=== PATIENT | female | born 1955 | race Hispanic/Latino ===

== ENCOUNTER 2024-03-07 06:54 | Day surgery (SDC) | payer MEDICARE ==
[2024-03-07] VITALS (11 sets, daily range): BP systolic 84–126; BP diastolic 40–59; PULSE 50–62; RESP 10–16; TEMP 96.6–98
[~2024-03-07] VITALS: Ht 162.6 cm; Wt 57.2 kg
[2024-03-07] MEDS: 0.9%NACL 1000ML 1,000 ML IV ONE (07:05)
[2024-03-07] MEDS ORDERED: proPOFol 10 MG/ML 20ML VIAL IV ONE ×4 (08:06→09:05)
== END 2024-03-07 10:30 | disposition home or self-care (01) ==
LOC: SUH 06:54 → DAH 06:54 → SUH 10:30
PROVIDERS: ATTEND Internal Medicine
DX: K86.2 Cyst of pancreas (principal); K86.89 Other specified diseases of pancreas; R93.3 Abnormal findings on diagnostic imaging of other parts of digestive tract; D12.6 Benign neoplasm of colon, unspecified; K57.30 Diverticulosis of large intestine without perforation or abscess without bleeding; K64.0 First degree hemorrhoids; M19.90 Unspecified osteoarthritis, unspecified site; E78.5 Hyperlipidemia, unspecified; Z79.899 Other long term (current) drug therapy
CPT/HCPCS: 43237; J7030; J2704 ×4; A4620; A4215; J3490

== ENCOUNTER 2024-03-08 09:49 | Day surgery (SDC) | payer MEDICARE ==
[2024-03-08] VITALS (12 sets, daily range): BP systolic 109–127; BP diastolic 45–56; PULSE 52–57; RESP 13–19; TEMP 97.3–97.7
[~2024-03-08] VITALS: Ht 162.6 cm; Wt 57.2 kg
[2024-03-08] MEDS: 0.9%NACL 1000ML 1,000 ML IV ONE (11:54)
[2024-03-08] MEDS ORDERED: proPOFol 10 MG/ML 20ML VIAL IV ONE (13:29)
[2024-03-08] MEDS ORDERED: rocuRONium bROMide 10MG/1ML 5ML VL ONE (13:30)
[2024-03-08] MEDS ORDERED: LIDOCAINE PF 100MG/5ML (2%) SYRINGE 5ML ONE (13:30)
[2024-03-08] MEDS ORDERED: ondanSETRON 4MG INJ ONE (14:06)
[2024-03-08] MEDS ORDERED: dexaMETHasone SOD PHOSPHATE 10MG/ML 1ML VIAL ONE (14:07)
[2024-03-08] MEDS ORDERED: NEOSTIGMINE METHYLSULFATE 1MG/ML IV ONE (14:07)
[2024-03-08] MEDS ORDERED: GLYCOPYRROLATE 0.2 MG/ML 5 ML VIAL ONE (14:08)
[2024-03-08] MEDS ORDERED: SUGAMMADEX SODIUM 200 MG/2 ML VIAL IV ONE (14:12)
[2024-03-08] MEDS ORDERED: FENTanyl CITRate PF 50 MCG/1 ML 2ML VIAL ONE (14:21)
[2024-03-08] MEDS ORDERED: MIDAZOLAM HCL 1 MG/ML 2ML VIAL ONE (14:22)
== END 2024-03-08 16:27 | disposition home or self-care (01) ==
LOC: DAH 09:49 → ENDO 09:49
PROVIDERS: ATTEND Internal Medicine
DX: K86.2 Cyst of pancreas (principal); K86.89 Other specified diseases of pancreas; R93.3 Abnormal findings on diagnostic imaging of other parts of digestive tract; E78.5 Hyperlipidemia, unspecified; M19.90 Unspecified osteoarthritis, unspecified site; Z90.710 Acquired absence of both cervix and uterus; R10.10 Upper abdominal pain, unspecified; D12.6 Benign neoplasm of colon, unspecified; K57.30 Diverticulosis of large intestine without perforation or abscess without bleeding; K64.0 First degree hemorrhoids; Z88.6 Allergy status to analgesic agent; Z79.899 Other long term (current) drug therapy
CPT/HCPCS: 43238; J3010; J1100; J7030 ×2; J3490 ×2; J2003; J2250; J2704; J2405; J2710; A4620; A4215 ×3; A4223; A7002; A4222; A4221; A4663; A4606

== ENCOUNTER 2024-10-25 13:13 | Emergency (ER) | payer MEDICARE, OTHER ==
[~2024-10-25] VITALS: Ht 162.6 cm; Wt 49.9 kg
--- NOTE | 2024-10-25 13:43 | ERN ---
General Chief Complaint: Weakness Stated Complaint: GBW Time Seen by MD: 13:16 Source: patient History of Present Illness Initial Comments Patient is a 68-year-old female coming in due to diarrhea and generalized body week it is episode. Per patient she has a history of CA and has been on chemotherapy. She states he was eating at a restaurant started feeling generalized body weakness went to the restroom has a diarrheal episode and states shortly after that she felt better but is here for further evaluation. Allergies: Coded Allergies: No Known Drug Allergies (Unverified Allergy, Unknown, 03/06/24) Home Meds No Active Prescriptions or Reported Meds Past Medical History Past Medical History: Cancer Medical History Other: PANCREATIC CA Past Surgical History: Appendectomy, Hysterectomy ROS Dictation CONSTITUTIONAL: No chills, no fever, no weakness, no diaphoresis, no malaise. HEAD/FACE: No signs of trauma. EENT: No eye pain, no blurred vision, no tearing, no double vision, no ear pain, no ear discharge, no nose pain, no nasal congestion, no throat pain, no throat swelling, no mouth pain. RESPIRATORY: No cough, no orthopnea, no SOB, no stridor, no wheezing. CARDIOVASCULAR: No chest pain, no edema, no palpitations, no syncope. GASTROINTESTINAL/ABDOMINAL: No abdominal pain, no constipation, no diarrhea, no nausea, no vomiting. GENITOURINARY: No abnormal discharge, no dysuria, no frequent urination, no hematuria. No complaints of pain in the genitals. MUSCULOSKELETAL: No back pain, no gout, no joint pain, no joint swelling, no muscle pain, no muscle stiffness, no neck pain. INTEGUMENTARY: No change in color, no change in hair/nails, no dryness, no lesion, no lumps, no rash. NEUROLOGICAL/PSYCH: No anxiety, not depressed, no emotional problem, no headache, no numbness, no pre-existing deficit, no history of seizures, no tremors, no weakness. HEMATOLOGIC/LYMPHATIC: Not anemic, no history of blood clots, no apparent bleeding, no bruising, glands not swollen. All Systems Negative, Except as Noted. Physical Exam Physical Exam Dictation VITAL SIGNS: Reviewed. GENERAL APPEARANCE: Alert, oriented x3, no acute distress, obese. HEAD AND FACE: Non-traumatic. EYES: PERRL, pink conjunctivas, eyelid no trauma, anterior chamber clear. EARS: Pinnas intact and no signs of trauma or erythema. Ear canals clear and no discharge. TMs no erythema. NOSE: No discharge, no bleeding. OROPHARYNX: Mouth normal, teeth no caries, tongue pink. Pharynx clear, no erythema. Tonsils no exudates, no abscesses noted. Mucous membrane moist. NECK: Supple, non-tender, no thyromegaly, no masses, no JVD, no bruits. BREAST: Deferred. CHEST: No tenderness, no crepitus, no paradoxical movement, no retractions. LUNGS: Clear, well-ventilated, symmetric, no rales, no wheezing, no rhonchi, no stridor, good breath sounds bilaterally. HEART: Regular rate, regular rhythm, no murmur, no gallops. VASCULAR: No peripheral edema. ABDOMEN: Soft, positive bowel sounds, nondistended, no guarding, nontender, no rebound, no masses no hepatomegaly, no splenomegaly, no Holman's sign, no hernias. RECTAL: Deferred. GENITAL: Deferred. NEUROLOGICAL: Normal speech, gross motor function intact, gross sensory function intact. MUSCULOSKELETAL: Neck nontender, full range of motion, back nontender, full range of motion. EXTREMITIES: Nontender, full range of motion. SKIN: Color pink, dry, no turgor, no rash, no lacerations, no abrasions, no contusions. LYMPHATICS: Deferred. Results Laboratory and Microbiology Lab and Micro Result Laboratory Tests Test 10/25/24 13:37 10/25/24 13:45 Urine Color YELLOW (YELLOW) Urine Appearance CLEAR (CLEAR) Urine pH 5.0 (5.0-8.0) Urine Specific [place] 1.016 (1.001-1.031) Urine Protein NEGATIVE mg/dL (NEGATIVE) Urine Glucose (UA) NEGATIVE mg/dL (NEGATIVE) Urine Ketones NEGATIVE mg/dL (NEGATIVE) Urine Occult Blood NEGATIVE (NEGATIVE) Urine Nitrate NEGATIVE (NEGATIVE) Urine Bilirubin NEGATIVE mg/dL (NEGATIVE) Urine Urobilinogen 0.2 mg/dL (0.2-1.0) Urine Leukocyte Esterase NEGATIVE [place]/uL White Blood Count 8.9 K/uL (4.8-10.8) Red Blood Count 2.90 MIL/uL (4.00-5.50) L Hemoglobin 9.0 g/dL (12.0-16.0) L Hematocrit 27.9 % (36-48) L Mean Corpuscular Volume 96.2 fL (79-99) Mean Corpuscular Hemoglobin 31.0 pg (27.0-33.0) Mean Corpuscular Hemoglobin Concent 32.3 g/dL (32.0-36.0) Red Cell Distribution Width 17.7 % (11.0-15.5) H Platelet Count 155 K/uL (130-400) Mean Platelet Volume 10.7 fL (7.5-10.5) H Immature Granulocyte % (Auto) 0.6 % (0-1) Neutrophils (%) (Auto) 85.0 % (40.0-77.0) H Lymphocytes (%) (Auto) 12.4 % (21.0-51.0) L Monocytes (%) (Auto) 1.0 % (3.0-13.0) L Eosinophils (%) (Auto) 0.9 % (0.0-8.0) Basophils (%) (Auto) 0.1 % (0.0-5.0) Neutrophils # (Auto) 7.6 K/uL (1.8-7.7) Lymphocytes # (Auto) 1.1 K/uL (1.0-4.8) Monocytes # (Auto) 0.1 K/uL (0.1-1.0) Eosinophils # (Auto) 0.08 K/uL (0.00-0.70) Basophils # (Auto) 0.01 K/uL (0.00-0.20) Absolute Immature Granulocyte (auto 0.05 K/uL (0-1) Nucleated Red Blood Cells 0.0 % (0.0-0.19) Sodium Level 141 mmol/L (136-145) Potassium Level 4.1 mmol/L (3.5-5.1) Chloride Level 107 mmol/L (101-111) Carbon Dioxide Level 24 mmol/L (21-32) Blood Urea Nitrogen 21 mg/dL (7-18) H Creatinine 0.9 mg/dL (0.5-1.0) Glomerular Filtration Rate Calc 70 mL/min (>90) Random Glucose 162 mg/dL (70-105) H Total Calcium 10.1 mg/dL (8.5-10.1) Total Bilirubin 0.5 mg/dL (0.2-1.0) Aspartate Amino Transf (AST/SGOT) 20 U/L (10-37) Alanine Aminotransferase (ALT/SGPT) 27 U/L (12-78) Alkaline Phosphatase 79 U/L (50-136) Total Creatine Kinase 29 U/L (21-232) Total Protein 7.4 g/dL (6.0-8.3) Albumin 3.5 g/dL (3.5-5.0) Lipase 37 U/L (16-77) Labs Reviewed?: Yes EKG/XRAY/US/CT/MRI EKG Comment 10/25/2024 time 1:38 p.m. Ventricular rate [address] wave elevation or depression MDM MDM: Differential diagnosis: Dehydration, chemotherapy side effect, history of pancreatic cancer, Rationale: Tests considered and ordered secondary to shared decision making include: Previous outside records reviewed: Old ER visits. Risk of complication and/or morbidity or mortality of patient management: None Medications-Per medication reconciliation Need for hospitalization: Patient does not meet criteria for hospitalization. Patient is a 68-year-old female coming in to be evaluated for momentarily weakness after a diarrhea episode. Patient states that she feels much better now patient was hydrated with IV fluids. Patient is currently on chemotherapy for pancreatic cancer. She states he does not has a fever no chills and she feels much better with the IV hydration. ED Course Orders Procedure Category Date Status Time Cbc With Differential LAB 10/25/24 Complete 13:30 Comprehensive LAB 10/25/24 Complete Metabolic Panel 13:30 Urinalysis Profile LAB 10/25/24 Complete 13:30 12 Lead Ekg Tracing- EKG 10/25/24 Logged Technical 13:30 Lactated Ringers PHA 10/25/24 Complete 1000ml (Lactated 13:30 Creatine Kinase, Total LAB 10/25/24 Complete 13:30 Lipase LAB 10/25/24 Complete 13:30 Current Medications Medications (Trade) Dose Ordered Sig/Zeny Route PRN Reason Start Time Stop Time Status Last Admin Dose Admin Lactated Ringer's 1,000 ml @ 0 mls/hr ONCE ONCE IV 10/25/24 13:30 10/25/24 13:33 DC 10/25/24 13:49 Vital Signs Date Time Temp Pulse Resp B/P (MAP) Pulse Ox O2 Delivery O2 Flow Rate FiO2 10/25/24 13:27 98.4 70 16 111/42 100 Room Air 0 DX & DISP Disposition: Discharge Departure Impression: Primary Impression: Chemotherapy adverse reaction Additional Impression: Dehydration Condition: Stable Scripts No Active Prescriptions or Reported Meds Additional Instructions: FOLLOW-UP WITH PRIMARY CARE PROVIDER IN 1 TO 2 DAYS. TAKE MEDICATIONS DIRECTED HERE IN THE EMERGENCY ROOM. OKAY TO CONTINUE HOME MEDICATIONS UNLESS OTHERWISE DISCUSSED DURING YOUR VISIT IN THE EMERGENCY ROOM TODAY. RETURN TO YOUR NEAREST EMERGENCY ROOM IF SYMPTOMS WORSEN OR IF THERE IS NO IMPROVEMENT. CALL 911 IF YOU NEED IMMEDIATE ASSISTANCE. TAKE TYLENOL [id number] N EEDED AND IF NO CONTRAINDICATIONS ARE PRESENT. INCREASE ORAL HYDRATION. A WOUND CULTURE OR URINE CULTURE WAS ORDERED HERE IN THE EMERGENCY ROOM DEPARTMENT PLEASE FOLLOW-UP WITH PRIMARY CARE PROVIDER AND ADVISE THEM TO GET REPORTS FROM OUR FACILITY. IF YOU HAD ANY JOSTIN WRAP/SPLINTS THAT WERE APPLIED HERE, PLEASE DO NOT REMOVE THEM UNTIL YOU SEE YOUR PRIMARY CARE OR SPECIALTY. Referrals: Referrals: CROW LÓPEZ (PCP) Time of Disposition: 14:17 RANDY FIELDS MD Oct 25, 2024 13:42
[2024-10-25 13:46] LABS: ADD UA MICROSCOPIC NO; APPEARANCE,URINE CLEAR (CLEAR); BILIRUBIN,URINE NEGATIVE (NEGATIVE); COLOR,URINE YELLOW (YELLOW); GLUCOSE, URINE (UA) NEGATIVE (NEGATIVE); KETONES,URINE NEGATIVE (NEGATIVE); LEUKOCYTE ESTERASE ,URINE NEGATIVE Leu/uL (NEGATIVE); NITRATE,URINE NEGATIVE (NEGATIVE); OCCULT BLOOD,URINE NEGATIVE (NEGATIVE); PROTEIN,URINE NEGATIVE (NEGATIVE); UROBILINOGEN,URINE 0.2 mg/dL (0.2-1.0)
[2024-10-25] MEDS: LACTATED RINGERS 1000ML 1,000 ML IV ONE (13:49)
[2024-10-25 13:51] LABS: BASOPHILS # (AUTO) 0.01 K/uL (0.00-0.20); BASOPHILS % (AUTO) 0.1 % (0.0-5.0); EOSINOPHILS # (AUTO) 0.08 K/uL (0.00-0.70); EOSINOPHILS % (AUTO) 0.9 % (0.0-8.0); HEMATOCRIT 27.9 % (36-48); IMMATURE GRANULOCYTE ABSOLUTE 0.05 K/uL (0-1); LYMPHOCYTES # (AUTO) 1.1 K/uL (1.0-4.8); LYMPHOCYTES % (AUTO) 12.4 % (21.0-51.0); MEAN CORPUSCULAR HGB CONC 32.3 g/dL (32.0-36.0); MEAN CORPUSCULAR VOLUME 96.2 fL (79-99); MONOCYTES # (AUTO) 0.1 K/uL (0.1-1.0); NEUTROPHILS # (AUTO) 7.6 K/uL (1.8-7.7); PLATELET COUNT (AUTO) 155 K/uL (130-400); RED CELL DISTRIBUTION WIDTH 17.7 % (11.0-15.5); WHITE BLOOD COUNT (AUTO) 8.9 K/uL (4.8-10.8)
[2024-10-25 14:01] LABS: CREATININE 0.9 mg/dL (0.5-1.0); POTASSIUM 4.1 mmol/L (3.5-5.1)
[2024-10-25 14:05] LABS: ALBUMIN 3.5 g/dL (3.5-5.0); BILIRUBIN,TOTAL 0.5 mg/dL (0.2-1.0); TOTAL PROTEIN, SERUM 7.4 g/dL (6.0-8.3)
[2024-10-25 14:24] VITALS: BP 115/52; PULSE 70; RESP 16; TEMP 98.4; O2SAT 100
--- NOTE | 2024-10-25 14:38 | EKG ---
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
== END 2024-10-25 14:45 | disposition home or self-care (01) ==
LOC: EDH 13:13
DX: R19.7 Diarrhea, unspecified (principal); R53.1 Weakness; T45.1X5A Adverse effect of antineoplastic and immunosuppressive drugs, initial encounter; E86.0 Dehydration; C25.9 Malignant neoplasm of pancreas, unspecified; Z90.49 Acquired absence of other specified parts of digestive tract; Z90.710 Acquired absence of both cervix and uterus; Y92.89 Other specified places as the place of occurrence of the external cause
CPT/HCPCS: 99284; 96360; 82550; 80053; 83690; 85025; 81003; 36415; 93005; J7120